=== PATIENT | female | born 1955 | race Caucasian/White ===

== ENCOUNTER 2019-08-09 09:57 | Day surgery (SDC) | payer BC ==
[2019-08-09] MEDS ORDERED: PROPOFOL 200 MG/20 ML BOTTLE IV ONE (09:58)
[2019-08-09 10:23] LABS: BASOPHILS # (AUTO) 0.1 K/uL (0.0-8.0); EOSINOPHILS # (AUTO) 0.1 K/uL (0.0-0.7); EOSINOPHILS % (AUTO) 2.1 % (0.0-7.0); HEMOGLOBIN 14.5 g/dL (10.9-14.3); LYMPHOCYTES # (AUTO) 1.7 K/uL (20.0-40.0); LYMPHOCYTES % (AUTO) 31.6 % (20.5-51.5); MEAN CORPUSCULAR HEMOGLOBIN 32.3 uug (24.7-32.8); MEAN CORPUSCULAR HGB CONC 34 g/dL (32.3-35.6); MEAN CORPUSCULAR VOLUME 95.8 fL (75.5-95.3); MONOCYTES # (AUTO) 0.4 K/uL (2.0-10.0); MONOCYTES % (AUTO) 7.9 % (0.0-11.0); NEUTROPHILS # (AUTO) 3.1 K/uL (1.8-8.9); NEUTROPHILS % (AUTO) 57.4 % (38.5-71.5); PLATELET COUNT (AUTO) 227 K/uL (179-408); RED BLOOD CELL COUNT(AUTO) 4.49 MIL/uL (3.63-4.92); WHITE BLOOD COUNT (AUTO) 5.4 K/uL (3.8-11.8)
[2019-08-09 10:25] LABS: *BILIRUBIN,URIN 1+ (NEGATIVE); *BLOOD, URINE NEGATIVE (NEGATIVE); *CLARITY,URINE SLIGHTLY CLOUDY (CLEAR); *COLOR,URINE YELLOW (YELLOW); *KETONES,URINE TRACE (NEGATIVE); *UROBILINOGEN,URINE 0.2 E.U./dl (NORMAL); LEUKOCYTE ESTERASE ,URINE TRACE (NEGATIVE); NITRITE, URINE NEGATIVE (NEGATIVE); PH,URINE 8.5 (5.0-8.0); UGLUCOSE NEGATIVE (NEGATIVE)
[2019-08-09 10:33] LABS: CREATININE 0.6 mg/dL (0.6-1.3); POTASSIUM 3.7 mmol/L (3.5-5.1)
[2019-08-09 10:44] LABS: BACTERIA,URINE FEW /HPF (NONE SEEN); MUCUS,URINE MODERATE /LPF (0-FEW); RBC,URINE 0-3 /HPF (0-3); SQUAMOUS EPITHELIAL CELL,UR FEW /HPF (NONE SEEN); WBC,URINE 0-3 /HPF (0-3)
[2019-08-09] MEDS ORDERED: FENTANYL CITRATE 100 MCG/2 ML AMPUL ONE (10:49)
[2019-08-09 10:51] LABS: BILIRUBIN,TOTAL 0.5 mg/dL (0.2-1.0); TOTAL PROTEIN, SERUM 7.8 g/dL (6.4-8.2)
== END 2019-08-09 13:45 | disposition home or self-care (01) ==
LOC: DS 09:57
PROVIDERS: ATTEND Internal Medicine Gastroenterology
DX: D50.9 Iron deficiency anemia, unspecified (principal); K29.50 Unspecified chronic gastritis without bleeding; K20.9 Esophagitis, unspecified; K64.8 Other hemorrhoids; I10 Essential (primary) hypertension; M19.90 Unspecified osteoarthritis, unspecified site; M81.0 Age-related osteoporosis without current pathological fracture; H40.9 Unspecified glaucoma; F15.90 Other stimulant use, unspecified, uncomplicated; F41.9 Anxiety disorder, unspecified; Z88.8 Allergy status to other drugs, medicaments and biological substances; Z87.440 Personal history of urinary (tract) infections; Z98.890 Other specified postprocedural states; Z83.71 Family history of colonic polyps; Z79.899 Other long term (current) drug therapy; Z82.49 Family history of ischemic heart disease and other diseases of the circulatory system; Z83.3 Family history of diabetes mellitus
CPT/HCPCS: 36415; 71045; 83550; 85025; 85730; 88342; 93005; A4217; A4663; J3010; J3490; J7120

== ENCOUNTER 2023-04-19 16:39 | Inpatient (IN) | payer BC, MEDICARE ==
[~2023-04-19] VITALS: Ht 162.6 cm; Wt 70.3 kg
[2023-04-19 16:57] VITALS: BP 138/60; TEMP 97.6; O2SAT 96
[2023-04-19] MEDS ORDERED: BRIN10DR EACHEYE (16:57)
[2023-04-19] MEDS ORDERED: LEVO25TA2 PO (17:15)
[2023-04-19] MEDS ORDERED: MAG355OR18 PO (17:15)
[2023-04-19] MEDS ORDERED: LOSA50TA39 PO (17:15)
[2023-04-19] MEDS ORDERED: HYDR-3974 PO (17:15)
[2023-04-19] MEDS ORDERED: MELO15TA13 PO (17:15)
[2023-04-19] MEDS ORDERED: CEFA1FRO IV (17:15)
[2023-04-19] MEDS ORDERED: ACET325T53 PO (17:15)
[2023-04-19] MEDS ORDERED: PANT40TA2 PO (17:27)
[2023-04-19] MEDS ORDERED: SERT25TA PO (17:27)
[2023-04-19] MEDS ORDERED: TEMA15CA5 PO (17:27)
[2023-04-19] MEDS ORDERED: ONDA4TAB5 IVP (17:27)
[2023-04-19] MEDS ORDERED: MORP15TA IV (17:34)
[2023-04-19] MEDS ORDERED: ONDANSETRON 4 MG/2 ML VIAL IV PRN (18:00)
[2023-04-19] MEDS ORDERED: BRINZOLAMIDE 1% OPHT DROP 10 ML BOTTLE EACHEYE SCH (21:00)
[2023-04-19] MEDS: OPTH EACHEYE SCH (21:30)
[2023-04-19] MEDS: BRINZOLAMIDE 1% EACHEYE SCH (21:30)
[2023-04-19] MEDS: CEFAZOLIN 1 G in IV DEXTROSE 5% 50 ML IV SCH (21:58)
[2023-04-19] MEDS: ACETAMINOPHEN 325 MG TABLET PO PRN (21:58)
[2023-04-20] MEDS: CEFAZOLIN 1 G in IV DEXTROSE 5% 50 ML IV SCH (06:20)
[2023-04-20] MEDS: PANTOPRAZOLE SODIUM 40 MG TABLET.DR PO SCH (06:33)
[2023-04-20] MEDS: LEVOTHYROXINE SODIUM 25 MCG TABLET PO SCH (06:33)
[2023-04-20] MEDS: ACETAMINOPHEN 325 MG TABLET PO PRN ×2 (06:37→21:35)
[2023-04-20] MEDS: HYDROCODONE/APAP 5-325MG TABLET PO PRN (06:43)
[2023-04-20] MEDS: LOSARTAN POTASSIUM 50 MG TABLET PO SCH (08:33)
[2023-04-20] MEDS: SERTRALINE HCL 50 MG TABLET PO SCH (08:33)
[2023-04-20] MEDS: MIRALAX 17 GM POWD.PACK PO SCH (08:34)
[2023-04-20] MEDS: OPTH EACHEYE SCH ×4 (08:34→21:06)
[2023-04-20] MEDS: BRINZOLAMIDE 1% EACHEYE SCH ×4 (08:34→21:06)
[2023-04-20 12:00] VITALS: BP 121/61; TEMP 98.7; O2SAT 96
[2023-04-20] MEDS: ENOXAPARIN SODIUM 40 MG/0.4 ML DISP.SYRIN SQ SCH (12:44)
[2023-04-20] MEDS: LACTULOSE 20 G/30 ML LIQUID UDC PO PRN (12:56)
[2023-04-20] MEDS ORDERED: BISACODYL 10 MG SUPP.RECT RC ONE (13:15)
[2023-04-20 16:00] VITALS: BP 126/57; TEMP 98.2; O2SAT 95
[2023-04-20 21:00] VITALS: BP 124/48; TEMP 98; O2SAT 98
[2023-04-20] MEDS: DOCUSATE SODIUM 100 MG CAPSULE PO SCH (21:05)
[2023-04-20] MEDS: TEMAZEPAM 15 MG CAPSULE PO PRN (21:35)
[2023-04-21 01:51] VITALS: BP 108/98; TEMP 98; O2SAT 96
[2023-04-21 04:35] VITALS: BP 128/58; TEMP 97.7; O2SAT 99
[2023-04-21] MEDS: PANTOPRAZOLE SODIUM 40 MG TABLET.DR PO SCH (06:05)
[2023-04-21] MEDS: LEVOTHYROXINE SODIUM 25 MCG TABLET PO SCH (06:05)
[2023-04-21 07:55] VITALS: BP 114/57; TEMP 98.3; O2SAT 96
[2023-04-21] MEDS: DOCUSATE SODIUM 100 MG CAPSULE PO SCH ×2 (09:23→20:37)
[2023-04-21] MEDS: LOSARTAN POTASSIUM 50 MG TABLET PO SCH (09:24)
[2023-04-21] MEDS: SERTRALINE HCL 50 MG TABLET PO SCH (09:25)
[2023-04-21] MEDS: ENOXAPARIN SODIUM 40 MG/0.4 ML DISP.SYRIN SQ SCH (09:26)
[2023-04-21] MEDS: MIRALAX 17 GM POWD.PACK PO SCH (09:27)
[2023-04-21] MEDS: OPTH EACHEYE SCH ×4 (09:31→20:42)
[2023-04-21] MEDS: BRINZOLAMIDE 1% EACHEYE SCH ×4 (09:31→20:42)
[2023-04-21] MEDS: HYDROCODONE/APAP 5-325MG TABLET PO PRN (10:40)
[2023-04-21 15:38] VITALS: BP 116/44; TEMP 97.9; O2SAT 97
[2023-04-21 20:48] VITALS: BP 120/51; TEMP 98; O2SAT 97
[2023-04-21] MEDS: TEMAZEPAM 15 MG CAPSULE PO PRN (21:01)
[2023-04-22 04:20] VITALS: BP 121/59; TEMP 97.9; O2SAT 99
[2023-04-22] MEDS: PANTOPRAZOLE SODIUM 40 MG TABLET.DR PO SCH (06:36)
[2023-04-22] MEDS: LEVOTHYROXINE SODIUM 25 MCG TABLET PO SCH (06:36)
[2023-04-22 07:56] VITALS: BP 122/53; TEMP 98.2; O2SAT 96
[2023-04-22] MEDS ORDERED: OXYCODONE HCL 5 MG TABLET PO SCH (08:00)
[2023-04-22] MEDS: DOCUSATE SODIUM 100 MG CAPSULE PO SCH ×2 (08:40→20:14)
[2023-04-22] MEDS: LOSARTAN POTASSIUM 50 MG TABLET PO SCH (08:40)
[2023-04-22] MEDS: SERTRALINE HCL 50 MG TABLET PO SCH (08:43)
[2023-04-22] MEDS: ENOXAPARIN SODIUM 40 MG/0.4 ML DISP.SYRIN SQ SCH (08:44)
[2023-04-22] MEDS: OPTH EACHEYE SCH ×4 (08:45→21:35)
[2023-04-22] MEDS: MIRALAX 17 GM POWD.PACK PO SCH (08:45)
[2023-04-22] MEDS: BRINZOLAMIDE 1% EACHEYE SCH ×4 (08:45→21:35)
[2023-04-22] MEDS: HYDROCODONE/APAP 5-325MG TABLET PO PRN ×2 (08:58→09:59)
[2023-04-22] MEDS: OXYCODONE HCL 5 MG TABLET PO SCH (14:23)
[2023-04-22 16:16] VITALS: BP 109/52; TEMP 98.1; O2SAT 96
[2023-04-22 20:39] VITALS: BP 110/46; TEMP 98.3; O2SAT 93
[2023-04-23] MEDS: LEVOTHYROXINE SODIUM 25 MCG TABLET PO SCH (06:07)
[2023-04-23] MEDS: PANTOPRAZOLE SODIUM 40 MG TABLET.DR PO SCH (06:07)
[2023-04-23 06:38] LABS: BASOPHILS # (AUTO) 0.1 K/UL (0.0-0.2); EOSINOPHILS # (AUTO) 0.3 K/uL (0.0-0.7); EOSINOPHILS % (AUTO) 4.8 % (0.0-7.0); HEMATOCRIT 39.1 % (31.2-41.9); HEMOGLOBIN 13.3 g/dL (10.9-14.3); LYMPHOCYTES # (AUTO) 1.5 K/uL (0.8-4.8); LYMPHOCYTES % (AUTO) 25.7 % (20.5-51.5); MEAN CORPUSCULAR HGB CONC 34 g/dL (32.3-35.6); MEAN CORPUSCULAR VOLUME 94.1 fL (75.5-95.3); MONOCYTES # (AUTO) 0.6 K/uL (0.1-1.30); MONOCYTES % (AUTO) 9.3 % (0.0-11.0); NEUTROPHILS # (AUTO) 3.5 K/uL (1.8-8.9); NEUTROPHILS % (AUTO) 59.2 % (38.5-71.5); PLATELET COUNT (AUTO) 211 K/uL (179-408); RED BLOOD CELL COUNT(AUTO) 4.15 MIL/uL (3.63-4.92); RED CELL DISTRIBUTION WIDTH 13.1 % (12.3-17.7); WHITE BLOOD COUNT (AUTO) 5.9 K/uL (3.8-11.8)
[2023-04-23 06:58] LABS: DIFFERENTIAL COMMENT 1
[2023-04-23 07:06] LABS: THYROID STIMULATING HORMONE 0.652 mIU/mL (0.358-3.740)
[2023-04-23 07:42] LABS: ALBUMIN 3.4 g/dL (3.4-5.0); BILIRUBIN,TOTAL 0.3 mg/dL (0.2-1.0); CALCIUM 8.7 mg/dL (8.5-10.1); CREATININE 0.6 mg/dL (0.6-1.3); MAGNESIUM 1.9 mg/dL (1.8-2.4); PHOSPHOROUS 4.3 mg/dL (2.5-4.9); POTASSIUM 4.4 mmol/L (3.5-5.1); TOTAL PROTEIN, SERUM 7.2 g/dL (6.4-8.2)
[2023-04-23 08:00] VITALS: BP 124/65; TEMP 98.1; O2SAT 96
[2023-04-23] MEDS: DOCUSATE SODIUM 100 MG CAPSULE PO SCH ×2 (08:14→20:27)
[2023-04-23] MEDS: SERTRALINE HCL 50 MG TABLET PO SCH (08:14)
[2023-04-23] MEDS: OXYCODONE HCL 5 MG TABLET PO SCH ×2 (08:15→12:47)
[2023-04-23] MEDS: MIRALAX 17 GM POWD.PACK PO SCH (08:17)
[2023-04-23] MEDS: ENOXAPARIN SODIUM 40 MG/0.4 ML DISP.SYRIN SQ SCH (08:17)
[2023-04-23] MEDS: LOSARTAN POTASSIUM 50 MG TABLET PO SCH (08:22)
[2023-04-23] MEDS: BRINZOLAMIDE 1% EACHEYE SCH ×4 (08:29→20:28)
[2023-04-23] MEDS: OPTH EACHEYE SCH ×4 (08:29→20:28)
[2023-04-23] MEDS ORDERED: OXYCODONE HCL 5 MG TABLET PO SCH (14:16)
[2023-04-23 16:00] VITALS: BP 121/50; TEMP 98.2; O2SAT 95
[2023-04-23] MEDS: HYDROCODONE/APAP 5-325MG TABLET PO PRN (19:48)
[2023-04-23 21:06] VITALS: BP 118/48; TEMP 97.9; O2SAT 97
[2023-04-24] MEDS: ACETAMINOPHEN 325 MG TABLET PO PRN (03:45)
[2023-04-24 04:00] VITALS: BP 135/53; TEMP 97.9; O2SAT 96
[2023-04-24] MEDS: LEVOTHYROXINE SODIUM 25 MCG TABLET PO SCH (06:05)
[2023-04-24] MEDS: PANTOPRAZOLE SODIUM 40 MG TABLET.DR PO SCH (06:05)
[2023-04-24 07:45] VITALS: BP 122/58; TEMP 98.2; O2SAT 96
[2023-04-24] MEDS: MIRALAX 17 GM POWD.PACK PO SCH (09:27)
[2023-04-24] MEDS: DOCUSATE SODIUM 100 MG CAPSULE PO SCH ×2 (09:32→20:29)
[2023-04-24] MEDS: OXYCODONE HCL 5 MG TABLET PO SCH ×2 (09:32→13:03)
[2023-04-24] MEDS: SERTRALINE HCL 50 MG TABLET PO SCH (09:33)
[2023-04-24] MEDS: LOSARTAN POTASSIUM 50 MG TABLET PO SCH (09:42)
[2023-04-24] MEDS: ENOXAPARIN SODIUM 40 MG/0.4 ML DISP.SYRIN SQ SCH (09:46)
[2023-04-24] MEDS: BRINZOLAMIDE 1% EACHEYE SCH ×4 (09:48→20:38)
[2023-04-24] MEDS: OPTH EACHEYE SCH ×4 (09:48→20:38)
[2023-04-24 16:29] VITALS: BP 120/58; TEMP 98.2; O2SAT 96
[2023-04-24] MEDS: HYDROCODONE/APAP 5-325MG TABLET PO PRN (16:34)
[2023-04-24] MEDS: LACTULOSE 20 G/30 ML LIQUID UDC PO PRN (16:34)
[2023-04-24] MEDS: ATORVASTATIN 20 MG TABLET PO SCH ×3 (20:29→21:00)
[2023-04-24 20:32] VITALS: BP 108/47; TEMP 98.5; O2SAT 96
[2023-04-25 04:40] VITALS: BP 136/59; TEMP 98.4; O2SAT 96
[2023-04-25 07:30] VITALS: BP 117/62; TEMP 98.7; O2SAT 95
[2023-04-25] MEDS: LEVOTHYROXINE SODIUM 25 MCG TABLET PO SCH (07:31)
[2023-04-25] MEDS: PANTOPRAZOLE SODIUM 40 MG TABLET.DR PO SCH (07:31)
[2023-04-25] MEDS: SERTRALINE HCL 50 MG TABLET PO SCH (08:51)
[2023-04-25] MEDS: DOCUSATE SODIUM 100 MG CAPSULE PO SCH ×2 (08:52→20:47)
[2023-04-25] MEDS: LOSARTAN POTASSIUM 50 MG TABLET PO SCH (08:52)
[2023-04-25] MEDS: MIRALAX 17 GM POWD.PACK PO SCH (08:52)
[2023-04-25] MEDS: OXYCODONE HCL 5 MG TABLET PO SCH ×2 (08:54→13:39)
[2023-04-25] MEDS: ENOXAPARIN SODIUM 40 MG/0.4 ML DISP.SYRIN SQ SCH (08:55)
[2023-04-25] MEDS: OPTH EACHEYE SCH ×4 (08:56→21:54)
[2023-04-25] MEDS: BRINZOLAMIDE 1% EACHEYE SCH ×4 (08:56→21:54)
[2023-04-25 16:21] VITALS: BP 117/50; TEMP 97.9; O2SAT 97
[2023-04-25] MEDS: ACETAMINOPHEN 325 MG TABLET PO PRN (19:05)
[2023-04-25 20:36] VITALS: BP 126/44; TEMP 97.8; O2SAT 97
[2023-04-25] MEDS: ATORVASTATIN 20 MG TABLET PO SCH (21:54)
[2023-04-26 04:55] VITALS: BP 141/54; TEMP 98.4; O2SAT 96
[2023-04-26] MEDS: LEVOTHYROXINE SODIUM 25 MCG TABLET PO SCH (07:43)
[2023-04-26] MEDS: PANTOPRAZOLE SODIUM 40 MG TABLET.DR PO SCH (07:43)
[2023-04-26] MEDS: DOCUSATE SODIUM 100 MG CAPSULE PO SCH ×2 (08:40→21:03)
[2023-04-26] MEDS: SERTRALINE HCL 50 MG TABLET PO SCH (08:40)
[2023-04-26] MEDS: MIRALAX 17 GM POWD.PACK PO SCH (08:42)
[2023-04-26] MEDS: LOSARTAN POTASSIUM 50 MG TABLET PO SCH (08:42)
[2023-04-26] MEDS: ENOXAPARIN SODIUM 40 MG/0.4 ML DISP.SYRIN SQ SCH (08:43)
[2023-04-26] MEDS: OXYCODONE HCL 5 MG TABLET PO SCH ×2 (08:43→12:16)
[2023-04-26 08:54] VITALS: BP 122/51; TEMP 97.7; O2SAT 97
[2023-04-26] MEDS: BRINZOLAMIDE 1% EACHEYE SCH ×4 (11:46→21:03)
[2023-04-26] MEDS: OPTH EACHEYE SCH ×4 (11:46→21:03)
[2023-04-26 12:00] VITALS: BP 108/54; TEMP 97.9; O2SAT 98
[2023-04-26 16:00] VITALS: BP 125/45; TEMP 97.6; O2SAT 97
[2023-04-26] MEDS: ATORVASTATIN 20 MG TABLET PO SCH (21:00)
[2023-04-26 23:58] VITALS: BP 120/60; TEMP 98; O2SAT 99
[2023-04-27] MEDS: LEVOTHYROXINE SODIUM 25 MCG TABLET PO SCH (06:04)
[2023-04-27] MEDS: PANTOPRAZOLE SODIUM 40 MG TABLET.DR PO SCH (06:04)
[2023-04-27 07:52] VITALS: BP 116/75; TEMP 98.5; O2SAT 97
[2023-04-27] MEDS: DOCUSATE SODIUM 100 MG CAPSULE PO SCH ×2 (09:39→21:01)
[2023-04-27] MEDS: LOSARTAN POTASSIUM 50 MG TABLET PO SCH (09:39)
[2023-04-27] MEDS: SERTRALINE HCL 50 MG TABLET PO SCH (09:40)
[2023-04-27] MEDS: ENOXAPARIN SODIUM 40 MG/0.4 ML DISP.SYRIN SQ SCH (09:45)
[2023-04-27] MEDS: OXYCODONE HCL 5 MG TABLET PO SCH ×2 (09:45→13:00)
[2023-04-27] MEDS: MIRALAX 17 GM POWD.PACK PO SCH (09:45)
[2023-04-27] MEDS: BRINZOLAMIDE 1% EACHEYE SCH ×4 (09:56→21:03)
[2023-04-27] MEDS: OPTH EACHEYE SCH ×4 (09:56→21:03)
[2023-04-27 16:00] VITALS: BP 117/61; TEMP 98; O2SAT 97
[2023-04-27 20:00] VITALS: BP 108/48; TEMP 97.9; O2SAT 94
[2023-04-27] MEDS: ATORVASTATIN 20 MG TABLET PO SCH (21:00)
[2023-04-27] MEDS: HYDROCODONE/APAP 5-325MG TABLET PO PRN (21:01)
[2023-04-28 04:00] VITALS: BP 125/55; TEMP 97.4; O2SAT 97
[2023-04-28] MEDS: PANTOPRAZOLE SODIUM 40 MG TABLET.DR PO SCH (06:22)
[2023-04-28] MEDS: LEVOTHYROXINE SODIUM 25 MCG TABLET PO SCH (06:22)
[2023-04-28 08:00] VITALS: BP 123/56; TEMP 98; O2SAT 98
[2023-04-28] MEDS: DOCUSATE SODIUM 100 MG CAPSULE PO SCH ×2 (08:57→21:11)
[2023-04-28] MEDS: OXYCODONE HCL 5 MG TABLET PO SCH ×2 (08:57→13:58)
[2023-04-28] MEDS: LOSARTAN POTASSIUM 50 MG TABLET PO SCH (08:57)
[2023-04-28] MEDS: SERTRALINE HCL 50 MG TABLET PO SCH (08:58)
[2023-04-28] MEDS: MIRALAX 17 GM POWD.PACK PO SCH (08:58)
[2023-04-28] MEDS: BRINZOLAMIDE 1% EACHEYE SCH ×4 (08:59→21:14)
[2023-04-28] MEDS: OPTH EACHEYE SCH ×4 (08:59→21:14)
[2023-04-28 16:00] VITALS: BP 111/50; TEMP 98.1; O2SAT 99
[2023-04-28 20:30] VITALS: BP 107/52; TEMP 98.5; O2SAT 96
[2023-04-28] MEDS: ACETAMINOPHEN 325 MG TABLET PO PRN (21:23)
[2023-04-29 04:50] VITALS: BP 129/43; TEMP 97.8; O2SAT 98
[2023-04-29] MEDS: LEVOTHYROXINE SODIUM 25 MCG TABLET PO SCH (06:38)
[2023-04-29] MEDS: PANTOPRAZOLE SODIUM 40 MG TABLET.DR PO SCH (06:38)
[2023-04-29 07:53] VITALS: BP 112/45; TEMP 98; O2SAT 98
[2023-04-29] MEDS: SERTRALINE HCL 50 MG TABLET PO SCH (08:27)
[2023-04-29] MEDS: DOCUSATE SODIUM 100 MG CAPSULE PO SCH ×2 (08:27→20:35)
[2023-04-29] MEDS: MIRALAX 17 GM POWD.PACK PO SCH (08:27)
[2023-04-29] MEDS: LOSARTAN POTASSIUM 50 MG TABLET PO SCH (08:28)
[2023-04-29] MEDS: BRINZOLAMIDE 1% EACHEYE SCH ×4 (08:29→20:41)
[2023-04-29] MEDS: OXYCODONE HCL 5 MG TABLET PO SCH ×2 (08:29→13:05)
[2023-04-29] MEDS: OPTH EACHEYE SCH ×4 (08:29→20:41)
[2023-04-29 16:28] VITALS: BP 101/43; TEMP 97.9; O2SAT 97
[2023-04-29 20:30] VITALS: BP 107/46; TEMP 98.4; O2SAT 95
[2023-04-29] MEDS: HYDROCODONE/APAP 5-325MG TABLET PO PRN (20:39)
[2023-04-30 04:20] VITALS: BP 118/56; TEMP 98.6; O2SAT 97
[2023-04-30] MEDS: PANTOPRAZOLE SODIUM 40 MG TABLET.DR PO SCH (06:03)
[2023-04-30] MEDS: LEVOTHYROXINE SODIUM 25 MCG TABLET PO SCH (06:03)
[2023-04-30 07:58] VITALS: BP 113/47; TEMP 98.2; O2SAT 98
[2023-04-30] MEDS: MIRALAX 17 GM POWD.PACK PO SCH (08:16)
[2023-04-30] MEDS: SERTRALINE HCL 50 MG TABLET PO SCH (08:17)
[2023-04-30] MEDS: DOCUSATE SODIUM 100 MG CAPSULE PO SCH ×2 (08:17→20:39)
[2023-04-30] MEDS: LOSARTAN POTASSIUM 50 MG TABLET PO SCH (08:18)
[2023-04-30] MEDS: OXYCODONE HCL 5 MG TABLET PO SCH ×2 (08:19→12:57)
[2023-04-30] MEDS: BRINZOLAMIDE 1% EACHEYE SCH ×4 (08:20→20:39)
[2023-04-30] MEDS: OPTH EACHEYE SCH ×4 (08:20→20:39)
[2023-04-30 16:00] VITALS: BP 118/49; TEMP 98.5; O2SAT 96
[2023-04-30 20:00] VITALS: BP 118/43; TEMP 98.9; O2SAT 96
[2023-05-01 05:11] VITALS: BP 125/45; TEMP 97.7; O2SAT 97
[2023-05-01] MEDS: LEVOTHYROXINE SODIUM 25 MCG TABLET PO SCH (06:06)
[2023-05-01] MEDS: PANTOPRAZOLE SODIUM 40 MG TABLET.DR PO SCH (06:06)
[2023-05-01 08:00] VITALS: BP 134/61; TEMP 98.1; O2SAT 97
[2023-05-01] MEDS: DOCUSATE SODIUM 100 MG CAPSULE PO SCH ×2 (08:03→20:14)
[2023-05-01] MEDS: SERTRALINE HCL 50 MG TABLET PO SCH (08:03)
[2023-05-01] MEDS: OXYCODONE HCL 5 MG TABLET PO SCH ×2 (08:03→13:00)
[2023-05-01] MEDS: MIRALAX 17 GM POWD.PACK PO SCH (08:04)
[2023-05-01] MEDS: LOSARTAN POTASSIUM 50 MG TABLET PO SCH (08:04)
[2023-05-01 08:05] VITALS: BP 134/61; TEMP 98.1; O2SAT 92
[2023-05-01] MEDS: BRINZOLAMIDE 1% EACHEYE SCH ×4 (08:05→20:15)
[2023-05-01] MEDS: OPTH EACHEYE SCH ×4 (08:05→20:15)
[2023-05-01 16:00] VITALS: BP 120/51; TEMP 98.2; O2SAT 96
[2023-05-01 19:30] VITALS: BP 121/52; TEMP 97.7; O2SAT 95
[2023-05-01] MEDS: HYDROCODONE/APAP 5-325MG TABLET PO PRN (20:14)
[2023-05-02 04:31] VITALS: BP 128/46; TEMP 98; O2SAT 96
[2023-05-02] MEDS: LEVOTHYROXINE SODIUM 25 MCG TABLET PO SCH (06:10)
[2023-05-02] MEDS: PANTOPRAZOLE SODIUM 40 MG TABLET.DR PO SCH (06:10)
[2023-05-02 08:00] VITALS: BP 118/46; TEMP 98.1; O2SAT 97
[2023-05-02] MEDS: OXYCODONE HCL 5 MG TABLET PO SCH ×2 (08:56→12:29)
[2023-05-02] MEDS: DOCUSATE SODIUM 100 MG CAPSULE PO SCH ×2 (09:00→20:12)
[2023-05-02] MEDS: SERTRALINE HCL 50 MG TABLET PO SCH (09:01)
[2023-05-02] MEDS: LOSARTAN POTASSIUM 50 MG TABLET PO SCH (09:01)
[2023-05-02] MEDS: MIRALAX 17 GM POWD.PACK PO SCH (09:01)
[2023-05-02] MEDS: BRINZOLAMIDE 1% EACHEYE SCH ×4 (10:14→20:11)
[2023-05-02] MEDS: OPTH EACHEYE SCH ×4 (10:14→20:11)
[2023-05-02 14:00] VITALS: BP 117/48; TEMP 97.6; O2SAT 95
[2023-05-02 19:45] VITALS: BP 106/45; TEMP 98.2; O2SAT 95
[2023-05-02] MEDS: HYDROCODONE/APAP 5-325MG TABLET PO PRN (20:12)
[2023-05-03 05:32] VITALS: BP 135/53; TEMP 97.7; O2SAT 99
[2023-05-03] MEDS: PANTOPRAZOLE SODIUM 40 MG TABLET.DR PO SCH (06:45)
[2023-05-03] MEDS: LEVOTHYROXINE SODIUM 25 MCG TABLET PO SCH (06:45)
[2023-05-03 08:00] VITALS: BP 147/82; TEMP 98; O2SAT 94
[2023-05-03] MEDS: MIRALAX 17 GM POWD.PACK PO SCH (08:31)
[2023-05-03] MEDS: DOCUSATE SODIUM 100 MG CAPSULE PO SCH ×2 (08:31→20:34)
[2023-05-03] MEDS: OXYCODONE HCL 5 MG TABLET PO SCH ×2 (08:32→12:35)
[2023-05-03] MEDS: SERTRALINE HCL 50 MG TABLET PO SCH (08:32)
[2023-05-03] MEDS: LOSARTAN POTASSIUM 50 MG TABLET PO SCH (08:32)
[2023-05-03] MEDS: OPTH EACHEYE SCH ×4 (08:33→20:34)
[2023-05-03] MEDS: BRINZOLAMIDE 1% EACHEYE SCH ×4 (08:33→20:34)
[2023-05-03 12:53] VITALS: BP 126/53; TEMP 98; O2SAT 94
[2023-05-03 16:00] VITALS: BP 121/49; TEMP 98.2; O2SAT 96
[2023-05-03 20:43] VITALS: BP 113/62; TEMP 98.2; O2SAT 97
[2023-05-04 06:30] VITALS: BP 117/53; TEMP 97.9; O2SAT 96
[2023-05-04] MEDS: LEVOTHYROXINE SODIUM 25 MCG TABLET PO SCH (06:33)
[2023-05-04] MEDS: PANTOPRAZOLE SODIUM 40 MG TABLET.DR PO SCH (06:33)
[2023-05-04] MEDS: OXYCODONE HCL 5 MG TABLET PO SCH ×2 (08:32→13:52)
[2023-05-04] MEDS: SERTRALINE HCL 50 MG TABLET PO SCH (08:32)
[2023-05-04] MEDS: BRINZOLAMIDE 1% EACHEYE SCH ×4 (08:32→20:34)
[2023-05-04] MEDS: OPTH EACHEYE SCH ×4 (08:32→20:34)
[2023-05-04] MEDS: DOCUSATE SODIUM 100 MG CAPSULE PO SCH ×2 (08:32→20:39)
[2023-05-04] MEDS: LOSARTAN POTASSIUM 50 MG TABLET PO SCH (08:33)
[2023-05-04] MEDS: MIRALAX 17 GM POWD.PACK PO SCH (08:34)
[2023-05-04 12:08] VITALS: BP 113/51; TEMP 98.3; O2SAT 97
[2023-05-04 16:00] VITALS: BP 120/52; TEMP 98.1; O2SAT 97
[2023-05-04 20:30] VITALS: BP 108/45; TEMP 98.8; O2SAT 95
[2023-05-04] MEDS: HYDROCODONE/APAP 5-325MG TABLET PO PRN (20:39)
[2023-05-05 04:25] VITALS: BP 128/46; TEMP 98.3; O2SAT 97
[2023-05-05] MEDS: HYDROCODONE/APAP 5-325MG TABLET PO PRN ×2 (05:52→20:42)
[2023-05-05] MEDS: PANTOPRAZOLE SODIUM 40 MG TABLET.DR PO SCH (06:02)
[2023-05-05] MEDS: LEVOTHYROXINE SODIUM 25 MCG TABLET PO SCH (06:02)
[2023-05-05 07:50] VITALS: BP 109/41; TEMP 98.2; O2SAT 94
[2023-05-05] MEDS: DOCUSATE SODIUM 100 MG CAPSULE PO SCH ×2 (08:46→20:42)
[2023-05-05] MEDS: OXYCODONE HCL 5 MG TABLET PO SCH ×2 (08:46→13:00)
[2023-05-05] MEDS: MIRALAX 17 GM POWD.PACK PO SCH (08:47)
[2023-05-05] MEDS: SERTRALINE HCL 50 MG TABLET PO SCH (08:47)
[2023-05-05] MEDS: DORZOLAMIDE 2% OPHT DROP 10 ML BOTTLE OP SCH ×4 (08:47→20:43)
[2023-05-05] MEDS: LOSARTAN POTASSIUM 50 MG TABLET PO SCH (08:47)
[2023-05-05 16:00] VITALS: BP 103/48; TEMP 98.1; O2SAT 95
[2023-05-05 20:31] VITALS: BP 106/46; TEMP 98.7; O2SAT 95
[2023-05-06 04:50] VITALS: BP 124/62; TEMP 98.4; O2SAT 97
[2023-05-06] MEDS: PANTOPRAZOLE SODIUM 40 MG TABLET.DR PO SCH (06:00)
[2023-05-06] MEDS: LEVOTHYROXINE SODIUM 25 MCG TABLET PO SCH (06:00)
[2023-05-06 07:20] LABS: DIFFERENTIAL COMMENT 1; EOSINOPHILS # (AUTO) 0.2 K/uL (0.0-0.7); EOSINOPHILS % (AUTO) 4.7 % (0.0-7.0); HEMOGLOBIN 12.2 g/dL (10.9-14.3); LYMPHOCYTES # (AUTO) 1.2 K/uL (0.8-4.8); MEAN CORPUSCULAR HGB CONC 34 g/dL (32.3-35.6); MONOCYTES # (AUTO) 0.4 K/uL (0.1-1.30); MONOCYTES % (AUTO) 8.9 % (0.0-11.0); NEUTROPHILS # (AUTO) 2.8 K/uL (1.8-8.9); NEUTROPHILS % (AUTO) 59.4 % (38.5-71.5); PLATELET COUNT (AUTO) 249 K/uL (179-408); RED BLOOD CELL COUNT(AUTO) 3.83 MIL/uL (3.63-4.92); RED CELL DISTRIBUTION WIDTH 13.1 % (12.3-17.7); WHITE BLOOD COUNT (AUTO) 4.7 K/uL (3.8-11.8)
[2023-05-06 07:41] VITALS: BP 108/45; TEMP 98.2; O2SAT 96
[2023-05-06 07:43] LABS: BILIRUBIN,TOTAL 0.4 mg/dL (0.2-1.0); CALCIUM 7.8 mg/dL (8.5-10.1); CREATININE 0.6 mg/dL (0.6-1.3); MAGNESIUM 1.9 mg/dL (1.8-2.4); PHOSPHOROUS 3.4 mg/dL (2.5-4.9); TOTAL PROTEIN, SERUM 6.4 g/dL (6.4-8.2)
[2023-05-06] MEDS: DOCUSATE SODIUM 100 MG CAPSULE PO SCH ×2 (08:09→20:39)
[2023-05-06] MEDS: SERTRALINE HCL 50 MG TABLET PO SCH (08:09)
[2023-05-06] MEDS: LOSARTAN POTASSIUM 50 MG TABLET PO SCH (08:10)
[2023-05-06] MEDS: OXYCODONE HCL 5 MG TABLET PO SCH ×2 (08:12→13:15)
[2023-05-06] MEDS: MIRALAX 17 GM POWD.PACK PO SCH (08:13)
[2023-05-06] MEDS: DORZOLAMIDE 2% OPHT DROP 10 ML BOTTLE OP SCH ×4 (08:13→20:42)
[2023-05-06 15:05] VITALS: BP 101/47; TEMP 98.2; O2SAT 95
[2023-05-06] MEDS: ACETAMINOPHEN 325 MG TABLET PO PRN (16:17)
[2023-05-06 20:00] VITALS: BP 101/42; TEMP 98.2; O2SAT 96
[2023-05-06] MEDS: HYDROCODONE/APAP 5-325MG TABLET PO PRN (20:40)
[2023-05-07] MEDS: LEVOTHYROXINE SODIUM 25 MCG TABLET PO SCH (06:00)
[2023-05-07] MEDS: PANTOPRAZOLE SODIUM 40 MG TABLET.DR PO SCH (06:00)
[2023-05-07 06:08] VITALS: BP 114/47; TEMP 97.6; O2SAT 96
[2023-05-07 07:50] VITALS: BP 123/49; TEMP 97.7; O2SAT 96
[2023-05-07] MEDS: DOCUSATE SODIUM 100 MG CAPSULE PO SCH ×2 (08:47→20:51)
[2023-05-07] MEDS: OXYCODONE HCL 5 MG TABLET PO SCH ×2 (08:48→12:00)
[2023-05-07] MEDS: LOSARTAN POTASSIUM 50 MG TABLET PO SCH (08:48)
[2023-05-07] MEDS: MIRALAX 17 GM POWD.PACK PO SCH (08:49)
[2023-05-07] MEDS: SERTRALINE HCL 50 MG TABLET PO SCH (08:49)
[2023-05-07] MEDS: DORZOLAMIDE 2% OPHT DROP 10 ML BOTTLE OP SCH ×2 (08:50→12:00)
[2023-05-07 16:16] VITALS: BP 96/48; TEMP 98.3; O2SAT 96
[2023-05-07] MEDS: HYDROCODONE/APAP 5-325MG TABLET PO PRN ×2 (17:33→20:51)
[2023-05-07 20:00] VITALS: BP 114/51; TEMP 98.2; O2SAT 96
[2023-05-08 04:00] VITALS: BP 131/56; TEMP 98; O2SAT 95
[2023-05-08] MEDS: LEVOTHYROXINE SODIUM 25 MCG TABLET PO SCH (06:00)
[2023-05-08] MEDS: PANTOPRAZOLE SODIUM 40 MG TABLET.DR PO SCH (06:00)
[2023-05-08 08:00] VITALS: BP 111/44; TEMP 97.9; O2SAT 96
[2023-05-08] MEDS: MIRALAX 17 GM POWD.PACK PO SCH (09:36)
[2023-05-08] MEDS: LOSARTAN POTASSIUM 50 MG TABLET PO SCH (09:36)
[2023-05-08] MEDS: OXYCODONE HCL 5 MG TABLET PO SCH ×2 (09:36→16:58)
[2023-05-08] MEDS: SERTRALINE HCL 50 MG TABLET PO SCH (09:37)
[2023-05-08] MEDS: DOCUSATE SODIUM 100 MG CAPSULE PO SCH ×2 (09:55→20:17)
[2023-05-08 16:45] VITALS: BP 106/42; TEMP 98.4; O2SAT 98
[2023-05-08 20:00] VITALS: BP 110/46; TEMP 98.4; O2SAT 96
[2023-05-08] MEDS: HYDROCODONE/APAP 5-325MG TABLET PO PRN (20:18)
[2023-05-09 05:00] VITALS: BP 130/53; TEMP 98; O2SAT 96
[2023-05-09] MEDS: PANTOPRAZOLE SODIUM 40 MG TABLET.DR PO SCH (06:45)
[2023-05-09] MEDS: LEVOTHYROXINE SODIUM 25 MCG TABLET PO SCH (06:45)
[2023-05-09] MEDS: LOSARTAN POTASSIUM 50 MG TABLET PO SCH (09:00)
[2023-05-09] MEDS: SERTRALINE HCL 50 MG TABLET PO SCH (09:11)
[2023-05-09] MEDS: OXYCODONE HCL 5 MG TABLET PO SCH ×2 (09:11→13:17)
[2023-05-09] MEDS: DOCUSATE SODIUM 100 MG CAPSULE PO SCH ×2 (09:11→20:37)
[2023-05-09] MEDS: MIRALAX 17 GM POWD.PACK PO SCH (09:11)
[2023-05-09] MEDS: BRINZOLAMIDE 1% OPHT DROP 10 ML BOTTLE EACHEYE SCH ×2 (13:00→17:13)
[2023-05-09 18:30] VITALS: TEMP 97.5
[2023-05-09] MEDS: HYDROCODONE/APAP 5-325MG TABLET PO PRN (20:37)
[2023-05-09] MEDS: LACTULOSE 20 G/30 ML LIQUID UDC PO PRN (20:37)
[2023-05-09 23:08] VITALS: BP 116/50; TEMP 98; O2SAT 99
[2023-05-09 23:11] VITALS: BP 116/50; TEMP 98; O2SAT 99
[2023-05-10 04:34] VITALS: BP 116/58; TEMP 98.2; O2SAT 99
[2023-05-10] MEDS: LEVOTHYROXINE SODIUM 25 MCG TABLET PO SCH (06:09)
[2023-05-10] MEDS: PANTOPRAZOLE SODIUM 40 MG TABLET.DR PO SCH (06:09)
[2023-05-10 08:00] VITALS: BP 103/49; TEMP 97.7; O2SAT 93
[2023-05-10] MEDS: BRINZOLAMIDE 1% OPHT DROP 10 ML BOTTLE EACHEYE SCH ×3 (08:41→17:30)
[2023-05-10] MEDS: MIRALAX 17 GM POWD.PACK PO SCH (08:41)
[2023-05-10] MEDS: SERTRALINE HCL 50 MG TABLET PO SCH (08:43)
[2023-05-10] MEDS: LOSARTAN POTASSIUM 50 MG TABLET PO SCH ×2 (08:43→08:52)
[2023-05-10] MEDS: OXYCODONE HCL 5 MG TABLET PO SCH ×2 (08:43→12:19)
[2023-05-10] MEDS: DOCUSATE SODIUM 100 MG CAPSULE PO SCH ×2 (08:43→20:32)
[2023-05-10 16:00] VITALS: BP 112/47; TEMP 98.3; O2SAT 100
[2023-05-10] MEDS: HYDROCODONE/APAP 5-325MG TABLET PO PRN (20:32)
[2023-05-10 22:29] VITALS: BP 107/48; TEMP 98.2; O2SAT 99
[2023-05-11 06:20] VITALS: BP 113/48; TEMP 97.6; O2SAT 97
[2023-05-11] MEDS: PANTOPRAZOLE SODIUM 40 MG TABLET.DR PO SCH (06:30)
[2023-05-11] MEDS: LEVOTHYROXINE SODIUM 25 MCG TABLET PO SCH (06:31)
[2023-05-11 08:00] VITALS: BP 132/46; TEMP 97.6; O2SAT 97
[2023-05-11] MEDS: OXYCODONE HCL 5 MG TABLET PO SCH ×2 (08:37→12:19)
[2023-05-11] MEDS: SERTRALINE HCL 50 MG TABLET PO SCH (08:38)
[2023-05-11] MEDS: DOCUSATE SODIUM 100 MG CAPSULE PO SCH (08:38)
[2023-05-11 08:45] VITALS: BP 132/46
[2023-05-11] MEDS: LOSARTAN POTASSIUM 50 MG TABLET PO SCH (08:45)
[2023-05-11] MEDS: BRINZOLAMIDE 1% OPHT DROP 10 ML BOTTLE EACHEYE SCH ×2 (08:46→12:19)
[2023-05-11] MEDS: MIRALAX 17 GM POWD.PACK PO SCH (08:46)
[2023-05-11] MEDS: HYDROCODONE/APAP 5-325MG TABLET PO PRN (15:25)
== END 2023-05-11 15:45 | disposition home health service (06) | DRG 560 ==
PROVIDERS: ADMIT Physical Medicine & Rehabilitation Pain Medicine; ATTEND Physical Medicine & Rehabilitation Pain Medicine
DX: Z47.89 Encounter for other orthopedic aftercare (principal); D68.59 Other primary thrombophilia; M20.11 Hallux valgus (acquired), right foot; M20.41 Other hammer toe(s) (acquired), right foot; E03.9 Hypothyroidism, unspecified; F41.9 Anxiety disorder, unspecified; I10 Essential (primary) hypertension; K59.00 Constipation, unspecified; Q70.31 Webbed toes, right foot; E78.5 Hyperlipidemia, unspecified; Z88.8 Allergy status to other drugs, medicaments and biological substances
CPT/HCPCS: 36415; 73630; 83735; 84100; 84443; 85025; 97535-GO-CO; A4663; J0690; J1650